=== PATIENT | male | born 1975 | race Caucasian/White ===

== ENCOUNTER 2024-01-26 09:25 | Outpatient (CLI) | payer BC, SELFPAY | END 2024-01-26 09:26 | disposition home or self-care (01) | PROVIDERS: PCP Family Medicine; Visit Provider Family Medicine | DX: R00.2 Palpitations (principal); Z13.6 Encounter for screening for cardiovascular disorders | CPT/HCPCS: 80048; 80061; 84443 ==

== ENCOUNTER 2024-09-19 07:06 | Outpatient (CLI) | payer BC, SELFPAY ==
--- NOTE | 2024-09-19 07:15 | CRLHL7_ITS ---
For Patients: As a result of the Century Cures Act, medical imaging exams and procedure reports are released immediately into your electronic medical record. You may view this report before your referring provider. If you have questions, please contact your health care provider. INDICATION: Headache. TECHNIQUE: [id number] MRA images of the head. Axial diffusion imaging of the brain. COMPARISON: None. FINDINGS: The internal carotid, middle cerebral, and anterior cerebral arteries are widely patent. The vertebral, basilar, and posterior cerebral arteries are widely patent. No intracranial aneurysm or high-flow vascular malformation. No diffusion restriction to suggest acute infarction. IMPRESSION: 1. Unremarkable MRA of the head. 2. No acute infarction. Dictated by Norman Garner MD @ 09/19/2024 1:56:35 PM (Electronically Signed)
== END 2024-09-19 07:07 | disposition home or self-care (01) ==
LOC: MRI 07:09
PROVIDERS: PCP Family Medicine; Visit Provider Family Medicine
DX: R51.9 Headache, unspecified (principal); R42 Dizziness and giddiness
CPT/HCPCS: 70544

== ENCOUNTER 2025-10-30 10:11 | Outpatient (CLI) | payer BC, SELFPAY | END 2025-10-30 10:12 | disposition home or self-care (01) | LOC: LKVREF 10:13 | PROVIDERS: PCP Family Medicine; Visit Provider Family Medicine | DX: Z12.5 Encounter for screening for malignant neoplasm of prostate (principal) | CPT/HCPCS: G0103 ==